=== PATIENT | male | born 1985 | race African-American/Black ===

== ENCOUNTER 2017-09-11 19:14 | Emergency (ER) | payer SELFPAY ==
--- NOTE | 2017-09-11 21:03 | RAD ---
RIGHT FOOT 3 VIEWS: Date: 09/11/17 PROVIDED CLINICAL HISTORY: Right foot pain status post injury. FINDINGS: There is a comminuted, nondisplaced fracture involving the great toe proximal phalanx which may be in terarticular at the IP joint. There is suggestion on the frontal view of an avulsion-type fracture in volving the first metatarsal distally at the MTP joint. No additional fracture is evident. Alignment appears anatomic. Joint spaces appear preserved. IMPRESSION: 1. Great toe proximal phalangeal fracture as above. 2. Possible first metatarsal avulsion injury. POS: [facility]
== END 2017-09-11 21:05 | disposition home or self-care (01) ==
LOC: ERS 19:14
DX: S92.411A Displaced fracture of proximal phalanx of right great toe, initial encounter for closed fracture (principal); F17.210 Nicotine dependence, cigarettes, uncomplicated; W18.40XA Slipping, tripping and stumbling without falling, unspecified, initial encounter

== ENCOUNTER 2017-09-12 18:56 | Emergency (ER) | payer SELFPAY | END 2017-09-12 19:51 | disposition home or self-care (01) | LOC: ERS 18:56 | DX: S92.414D Nondisplaced fracture of proximal phalanx of right great toe, subsequent encounter for fracture with routine healing (principal); F17.210 Nicotine dependence, cigarettes, uncomplicated | CPT/HCPCS: 99283 ==

== ENCOUNTER 2022-01-21 11:16 | Emergency (ER) | payer SELFPAY | END 2022-01-21 13:03 | disposition home or self-care (01) | LOC: ERS 11:16 | DX: I10 Essential (primary) hypertension (principal); F17.210 Nicotine dependence, cigarettes, uncomplicated | CPT/HCPCS: 99281 ==